=== PATIENT | male | born 1955 | race Caucasian/White ===

== ENCOUNTER 2018-11-18 12:39 | Inpatient (IN) | payer OTHER ==
[~2018-11-18] VITALS: Ht 195.6 cm; Wt 118.4 kg
[2018-11-18] VITALS (9 sets, daily range): BP systolic 113–146; BP diastolic 73–85
[~2018-11-18 12:39] MED LIST: ALFU10TA3 PO; AMLO5TAB10 PO; ESCITALOPRAM OX10 MG PO; FINA5TAB4 PO; GUAI1CAP9 PO; HYDROmorphone 2 MG/ML VIAL IV PRN; IV RINGERS,LACTATED 1000ML 1,000 ML IV SCH; LIDOCAINE 1% PF 2 ML VIAL. ID PRN; METF500T16 PO; MORPHINE SULFATE 2 MG/ML VIAL. IV PRN; ONDANSETRON PF 4 MG/2 ML VIAL. IV PRN; PROCHLORPERAZINE 10 MG/2 ML VIAL. IV PRN; fentaNYL PF VIAL 100 MCG/2 ML VIAL IV PRN
[2018-11-18] MEDS ORDERED: INSULIN LISPRO 100 UNIT/ML 3ML VIAL for OP,RR ONLY. SQ PRN (13:15)
[2018-11-18] MEDS ORDERED: ONDANSETRON PF 4 MG/2 ML VIAL. ONE (13:59)
[2018-11-18] MEDS ORDERED: LIDOCAINE 2% PF 5 ML VIAL. ONE (13:59)
[2018-11-18] MEDS ORDERED: PROPOFOL 20 ML IV ONE (13:59)
[2018-11-18] MEDS ORDERED: DEXAMETHASONE SOD PHOS 4 MG/ML VIAL ONE (13:59)
[2018-11-18] MEDS ORDERED: fentaNYL PF VIAL 100 MCG/2 ML VIAL ONE (13:59)
[2018-11-18] MEDS ORDERED: KETOROLAC 30 MG/ML VIAL. ONE (14:53)
[2018-11-18] MEDS ORDERED: ePHEDrine PF IN SALINE 50 MG/10 ML SYRINGE. IV ONE (14:54)
[2018-11-18] MEDS ORDERED: PHENYLEPHRINE in 0.9% NACL PF 1 MG/10 ML SYRINGE. IV ONE (15:12)
[2018-11-18] MEDS ORDERED: SEVOFLURANE 61 TO 120 MINUTES. IH ONE (15:30)
[2018-11-18] MEDS ORDERED: IV NORMAL SALINE 1000ML BAG 1,000 ML IV SCH (16:16)
[2018-11-18] MEDS: POTASSIUM CL 20MEQ D5-0.45NACL 1,000 ML IV SCH (16:16)
--- NOTE | 2018-11-18 16:28 | PDOC4 ---
OPERATIVE NOTE Date: Date: Nov 18, 2018 Pre-Op Diagnosis: BPH w ZUÑIGA Post-Op Diagnosis: same Procedure Performed: cysto, TUR-P Surgeon: alicia Anesthesia Type: gen Blood Loss: 100cc Specimans Obtained: chips approx 40 gm Findings: enlarged obstructing prostate gland Complications: none Operative Note: Gen anes, IV abx admin'd, pt placed in lithotomy pos'n, prepped and draped in usual fashion Cysto performed revealing above findings. 14-Fr resectoscope placed with generous lubriction and the prostate then resected in usual fashion starting at neck, extending through the lateral lobes, and the completing with apical resection. Chips were removed with evacuator as needed and bleeding was controlled with cautery. Care was taken to preserve the veru and sphincter. At conclusion, the bladder was carefully inspected and there were no chips remaining in the bladder. The fossa appeared hemostatic. THe scope was removed and the patient had a good "void" sign. A 24-Fr 3-way liu was placed and CBI was initiated. The return was clear to pink. The patient was the awakened and transferred to in stable cond'n. The CBI was continued throughout the transport period. EBL 100cc Status in RR; good Will leave CBI through the night and re-eval in am. Labs ordered for am. YAHIR ABBOTT MD Nov 18, 2018 16:28
[2018-11-18] MEDS ORDERED: MORPHINE SULFATE 2 MG/ML VIAL. IV PRN (16:30)
[2018-11-18] MEDS ORDERED: PROCHLORPERAZINE 25 MG SUPP.RECT. PR PRN (16:30)
[2018-11-18] MEDS ORDERED: diphenhydrAMINE HCL 25 MG CAPSULE PO PRN (16:30)
[2018-11-18] MEDS ORDERED: HYDROcodone/APAP 5/325MG 1 TAB TABLET PO PRN ×2 (16:30)
[2018-11-18] MEDS ORDERED: ONDANSETRON PF 4 MG/2 ML VIAL. IV PRN (16:30)
[2018-11-18] MEDS ORDERED: NALOXONE 0.4 MG/ML VIAL. IV PRN ×2 (16:30)
[2018-11-18] MEDS ORDERED: PROCHLORPERAZINE 10 MG/2 ML VIAL. IV PRN (16:30)
[2018-11-18] MEDS ORDERED: 0.9 % SODIUM CHLORIDE 10 ML DISP.SYRIN. IV PRN (16:30)
[2018-11-18] MEDS: ACETAMINOPHEN 325 MG TABLET. PO SCH (17:00)
[2018-11-18] MEDS ORDERED: IV DEXTROSE 5% 250 ML BAG. IV PRN (19:30)
[2018-11-18] MEDS ORDERED: DEXTROSE 50% 25 GM / 50ML DISP.SYRIN. IV PRN (19:30)
[2018-11-18] MEDS: SENNOSIDES/DOCUSATE 8.6/50MG TABLET. PO SCH (20:54)
[2018-11-18] MEDS: TAMSULOSIN 0.4 MG CAP.ER.24H. PO SCH (20:54)
[2018-11-19] MEDS: ACETAMINOPHEN 325 MG TABLET. PO SCH ×4 (00:59→21:27)
[2018-11-19 03:00] VITALS: BP 110/66
[2018-11-19] MEDS: POTASSIUM CL 20MEQ D5-0.45NACL 1,000 ML IV SCH ×2 (06:10→12:16)
[2018-11-19 07:00] VITALS: BP 114/68
[2018-11-19 08:22] LABS: BASO # 0.1 x10^3/uL (0.0-0.2); BASO % 1 % (0-3); EOS # 0.1 x10^3/uL (0.0-0.7); EOS % 1 % (0-3); HEMATOCRIT 38.5 % (39.0-53.0); HEMOGLOBIN 13.3 g/dL (13.0-17.5); LYMPH # 0.6 x10^3/uL (1.0-4.8); LYMPH % 6 % (24-48); MEAN CORPUSCULAR HEMOGLOBIN 33 pg (25-35); MEAN CORPUSCULAR HGB CONC 35 g/dL (31-37); MEAN CORPUSCULAR VOLUME 94 fL (79-100); MONO # 0.6 x10^3/uL (0.0-1.1); MONO % 6 % (0-9); NEUT # 8.5 x10^3/uL (1.8-7.7); NEUT % 86 % (31-73); PLATELET COUNT 196 x10^3/uL (140-400); RED BLOOD COUNT 4.09 x10^6/uL (4.30-5.70); WHITE BLOOD COUNT 9.8 x10^3/uL (4.0-11.0)
[2018-11-19 08:40] LABS: CREATININE 1.2 mg/dL (0.7-1.3); GFR 61.1
[2018-11-19] MEDS ORDERED: INSULIN LISPRO 300 UNITS/3 ML VIAL. ONE (08:40)
[2018-11-19] MEDS: FINASTERIDE 5 MG TABLET. PO SCH (08:50)
[2018-11-19] MEDS: SENNOSIDES/DOCUSATE 8.6/50MG TABLET. PO SCH ×2 (08:50→21:27)
[2018-11-19] MEDS: CITALOPRAM 20 MG TABLET. PO SCH (08:50)
[2018-11-19] MEDS: amLODIPine BESYLATE 5 MG TABLET PO SCH (08:50)
[2018-11-19] MEDS: INSULIN LISPRO 300 UNITS/3 ML VIAL. SQ SCH ×3 (08:52→16:53)
[2018-11-19 09:11] LABS: POTASSIUM 4.5 mmol/L (3.5-5.1)
--- NOTE | 2018-11-19 09:55 | PDOC ---
PROGRESS NOTE CHIEF COMPLAINT: one day s/p TURP; no pain; taking fluids well SUBJECTIVE: ROS: ROS: RESPIRATORY: Shortness of breath denies. Cough denies. UROLOGY: Denies blood in urine. Denies difficulty urinating urine pink HPI: Duration: [] Quality: [] Severity: [] Site/Location: [] OBJECTIVE: Vital Signs: Vital Signs Date Time Temp Pulse Resp B/P (MAP) Pulse Ox O2 Delivery O2 Flow Rate FiO2 11/19/18 08:52 116/72 11/19/18 07:00 98.1 82 18 114/68 (83) 95 Room Air 98.1 11/19/18 03:00 98.2 82 18 110/66 (81) 96 Room Air 98.2 11/18/18 23:00 98.1 95 18 116/73 (87) 97 Room Air 98.1 11/18/18 22:00 103 121/73 (89) 93 Room Air 11/18/18 21:04 98 18 121/76 (91) 94 Room Air 11/18/18 19:30 93 113/78 (90) 95 Room Air 11/18/18 19:30 Room Air 11/18/18 19:00 92 125/80 (95) 93 Room Air 11/18/18 18:45 91 134/84 (101) 95 Room Air 11/18/18 18:30 91 18 129/85 (100) 95 Room Air 11/18/18 18:15 91 146/81 (102) 95 Room Air 11/18/18 17:30 98.1 40 18 139/80 (99) 96 Room Air 98.1 11/18/18 17:06 83 16 139/76 94 Room Air 11/18/18 16:50 84 12 146/76 97 Room Air 11/18/18 16:35 88 16 152/80 100 Simple Mask 8 11/18/18 16:16 Mask 11/18/18 16:16 97.9 106 16 128/75 99 Simple Mask 8 97.9 11/18/18 13:01 97.1 63 18 156/80 96 Room Air 97.1 I & O Intake and Output 11/19/18 06:59 Intake Total 2590 ml Output Total 67358 ml Balance -9460 ml Intake Oral 540 ml IV Total 2050 ml Output Urine Total 46127 ml PHYSICAL EXAM: Physical Exam: General: Pleasant, no acute distress, well groomed Eyes: conjunctiva anicteric, eyes full range of motion ENT: moist oral mucosa, normal dentition Neck: Trachea midline, no masses Respiratory: unlabored breathing, not using accessory muscles, no crackles or wheezes Cardiovascular: Regular rate and rhythm, no peripheral edema Abdomen: nontender, nondistended, no hepatosplenomegaly, no masses Skin: no rashes or skin lesions on visualized skin Psych: normal mood, affect. Alert and oriented x 3. LABS: Laboratory Tests Test 11/18/18 13:10 11/18/18 16:37 11/18/18 17:54 11/18/18 20:28 Glucose (Fingerstick) 100 mg/dL (70-99) 118 mg/dL (70-99) 150 mg/dL (70-99) 271 mg/dL (70-99) Test 11/19/18 06:57 11/19/18 08:01 White Blood Count 9.8 x10^3/uL (4.0-11.0) Red Blood Count 4.09 x10^6/uL (4.30-5.70) Hemoglobin 13.3 g/dL (13.0-17.5) Hematocrit 38.5 % (39.0-53.0) Mean Corpuscular Volume 94 fL (79-100) Mean Corpuscular Hemoglobin 33 pg (25-35) Mean Corpuscular Hemoglobin Concent 35 g/dL (31-37) Red Cell Distribution Width 15.0 % (11.5-14.5) Platelet Count 196 x10^3/uL (140-400) Neutrophils (%) (Auto) 86 % (31-73) Lymphocytes (%) (Auto) 6 % (24-48) Monocytes (%) (Auto) 6 % (0-9) Eosinophils (%) (Auto) 1 % (0-3) Basophils (%) (Auto) 1 % (0-3) Neutrophils # (Auto) 8.5 x10^3/uL (1.8-7.7) Lymphocytes # (Auto) 0.6 x10^3/uL (1.0-4.8) Monocytes # (Auto) 0.6 x10^3/uL (0.0-1.1) Eosinophils # (Auto) 0.1 x10^3/uL (0.0-0.7) Basophils # (Auto) 0.1 x10^3/uL (0.0-0.2) Sodium Level 140 mmol/L (136-145) Potassium Level 4.5 mmol/L (3.5-5.1) Chloride Level 104 mmol/L (98-107) Carbon Dioxide Level 27 mmol/L (21-32) Anion Gap 9 (6-14) Blood Urea Nitrogen 18 mg/dL (8-26) Creatinine 1.2 mg/dL (0.7-1.3) Estimated GFR (Cockcroft-Gault) 61.1 Glucose Level 165 mg/dL (70-99) Calcium Level 9.0 mg/dL (8.5-10.1) Glucose (Fingerstick) 163 mg/dL (70-99) MEDICATIONS: Current Medications Medications (Trade) Dose Ordered Sig/Dilma Start Time Stop Time Status Last Admin Dose Admin Acetaminophen (Tylenol) 650 mg Q8HRS 11/18/18 17:00 11/19/18 06:10 650 MG Acetaminophen/ Hydrocodone Bitart (Lortab 5/325) 2 tab PRN Q4HRS PRN 11/18/18 16:30 Amlodipine Besylate (Norvasc) 5 mg DAILY 11/19/18 09:00 11/19/18 08:52 5 MG Cefazolin Sodium/ Dextrose 50 ml @ 100 mls/hr 1X ONCE 11/18/18 20:30 11/18/18 20:59 DC 11/18/18 20:55 100 MLS/HR Citalopram Hydrobromide (CeleXA) 20 mg DAILY 11/19/18 09:00 11/19/18 08:52 20 MG Dexamethasone Sodium Phosphate (Decadron) 4 mg STK-MED ONCE 11/18/18 13:59 11/18/18 13:59 DC Dextrose 250 ml PRN Q15MIN PRN 11/18/18 19:30 Dextrose (Dextrose 50%-Water Syringe) 12.5 gm PRN Q15MIN PRN 11/18/18 19:30 Diphenhydramine HCl (Benadryl) 25 mg PRN Q6HRS PRN 11/18/18 16:30 Ephedrine Sulfate (Akovaz) 50 mg STK-MED ONCE 11/18/18 14:57 11/18/18 14:57 DC Ephedrine Sulfate (ePHEDrine PF IN SALINE SYRINGE) 50 mg STK-MED ONCE 11/18/18 14:54 11/18/18 14:54 DC Fentanyl Citrate (Fentanyl 2ml Vial) 100 mcg STK-MED ONCE 11/18/18 13:59 11/18/18 14:00 DC Finasteride (Proscar) 5 mg DAILY 11/19/18 09:00 11/19/18 08:52 5 MG Hydromorphone HCl (Dilaudid) 0.5 mg PRN Q10MIN PRN 11/18/18 07:00 11/18/18 20:00 DC Insulin Human Lispro (HumaLOG VIAL for OP,RR ONLY) 0-10 units PRN Q1HR PRN 11/18/18 13:15 11/19/18 13:14 Insulin Human Lispro (HumaLOG) 300 units STK-MED ONCE 11/19/18 08:40 11/19/18 08:41 DC Ketorolac Tromethamine (Toradol 30mg Vial) 30 mg STK-MED ONCE 11/18/18 14:53 11/18/18 14:54 DC Lidocaine HCl (Lidocaine Pf 2% Vial) 5 ml STK-MED ONCE 11/18/18 13:59 11/18/18 13:59 DC Lidocaine HCl (Xylocaine-Mpf 1% 2ml Vial) 2 ml PRN 1X PRN 11/18/18 07:00 11/18/18 20:00 DC Metformin HCl (Glucophage) 500 mg BIDWMEALS 11/19/18 19:30 Morphine Sulfate (Morphine Sulfate) 1 mg PRN Q1HR PRN 11/18/18 16:30 Naloxone HCl (Narcan) 0.4 mg PRN Q2MIN PRN 11/18/18 16:30 Ondansetron HCl (Zofran) 4 mg PRN Q6HRS PRN 11/18/18 16:30 Phenylephrine HCl (PHENYLEPHRINE in 0.9% NACL PF) 1 mg STK-MED ONCE 11/18/18 15:12 11/18/18 15:12 DC Potassium Chloride/Dextrose/ Sod Cl 1,000 ml @ 100 mls/hr Q10H 11/18/18 16:16 11/19/18 06:10 100 MLS/HR Prochlorperazine (Compazine) 25 mg PRN Q12HR PRN 11/18/18 16:30 Prochlorperazine Edisylate (Compazine) 5 mg PRN Q6HRS PRN 11/18/18 16:30 Propofol 20 ml @ As Directed STK-MED ONCE 11/18/18 13:59 11/18/18 13:59 DC Ringer's Solution 1,000 ml @ 30 mls/hr Q24H 11/18/18 07:00 11/18/18 18:59 DC 11/18/18 13:13 30 MLS/HR Senna/Docusate Sodium (Senna Plus) 1 tab BID 11/18/18 21:00 11/19/18 08:52 1 TAB Sevoflurane (Ultane) 60 ml STK-MED ONCE 11/18/18 15:30 11/18/18 15:30 DC Sodium Chloride 1,000 ml @ 25 mls/hr Q24H 11/18/18 16:16 Sodium Chloride (Normal Saline Flush) 3 ml QSHIFT PRN 11/18/18 16:30 Tamsulosin HCl (Flomax) 0.4 mg QHS 11/18/18 21:00 11/18/18 20:55 0.4 MG ASSESSMENT & PLAN Will cont liu today; enc po fluids; decrease CBI DC iv Cipro orally YAHIR ABBOTT MD Nov 19, 2018 09:55
[2018-11-19 11:00] VITALS: BP 111/69
[2018-11-19] MEDS: CIPROFLOXACIN HCL 250 MG TABLET. PO SCH ×2 (11:48→21:27)
--- NOTE | 2018-11-19 11:52 | NUR ---
SS following for discharge planning. SS reviewed pt chart. Pt is from home with spouse and is currently on room air. No discharge needs noted at this time. SS will continue to follow for discharge planning.
[2018-11-19 15:00] VITALS: BP 111/52
[2018-11-19 19:00] VITALS: BP 135/69
[2018-11-19] MEDS: metFORMIN 500 MG TABLET PO SCH (20:09)
[2018-11-19] MEDS: TAMSULOSIN 0.4 MG CAP.ER.24H. PO SCH (21:27)
[2018-11-19 23:00] VITALS: BP 146/77
[2018-11-20 03:00] VITALS: BP 122/70
[2018-11-20] MEDS: ACETAMINOPHEN 325 MG TABLET. PO SCH (06:29)
[2018-11-20 07:00] VITALS: BP 145/75
[2018-11-20] MEDS: metFORMIN 500 MG TABLET PO SCH (07:58)
[2018-11-20] MEDS: INSULIN LISPRO 300 UNITS/3 ML VIAL. SQ SCH ×2 (08:00→12:00)
--- NOTE | 2018-11-20 08:54 | PDOC ---
PROGRESS NOTE CHIEF COMPLAINT: no c/o's' having BM SUBJECTIVE: ROS: ROS: RESPIRATORY: Shortness of breath denies. Cough denies. UROLOGY: Denies blood in urine. Denies difficulty urinating HPI: Duration: [] Quality: [] Severity: [] Site/Location: [] OBJECTIVE: Vital Signs: Vital Signs Date Time Temp Pulse Resp B/P (MAP) Pulse Ox O2 Delivery O2 Flow Rate FiO2 11/20/18 03:00 97.9 60 18 122/70 (87) 97 Room Air 97.9 11/19/18 23:00 97.9 59 18 146/77 (100) 97 Room Air 97.9 11/19/18 20:10 Room Air 11/19/18 19:00 97.7 64 18 135/69 (91) 97 Room Air 97.7 11/19/18 15:00 97.7 66 18 111/52 (71) 92 Room Air 97.7 11/19/18 11:00 97.9 79 18 111/69 (83) 96 Room Air 97.9 I & O Intake and Output 11/20/18 07:00 Intake Total 2750 ml Output Total 83885 ml Balance -7650 ml Intake Oral 1750 ml IV Total 1000 ml Output Urine Total 41100 ml PHYSICAL EXAM: Physical Exam: General: Pleasant, no acute distress, well groomed Eyes: conjunctiva anicteric, eyes full range of motion ENT: moist oral mucosa, normal dentition Neck: Trachea midline, no masses Respiratory: unlabored breathing, not using accessory muscles, no crackles or wheezes Cardiovascular: Regular rate and rhythm, no peripheral edema Abdomen: nontender, nondistended, no hepatosplenomegaly, no masses Skin: no rashes or skin lesions on visualized skin Psych: normal mood, affect. Alert and oriented x 3. LABS: Laboratory Tests Test 11/18/18 13:10 11/18/18 16:37 11/18/18 17:54 11/18/18 20:28 Glucose (Fingerstick) 100 mg/dL (70-99) 118 mg/dL (70-99) 150 mg/dL (70-99) 271 mg/dL (70-99) Test 11/19/18 06:57 11/19/18 08:01 11/19/18 11:37 11/19/18 16:34 White Blood Count 9.8 x10^3/uL (4.0-11.0) Red Blood Count 4.09 x10^6/uL (4.30-5.70) Hemoglobin 13.3 g/dL (13.0-17.5) Hematocrit 38.5 % (39.0-53.0) Mean Corpuscular Volume 94 fL (79-100) Mean Corpuscular Hemoglobin 33 pg (25-35) Mean Corpuscular Hemoglobin Concent 35 g/dL (31-37) Red Cell Distribution Width 15.0 % (11.5-14.5) Platelet Count 196 x10^3/uL (140-400) Neutrophils (%) (Auto) 86 % (31-73) Lymphocytes (%) (Auto) 6 % (24-48) Monocytes (%) (Auto) 6 % (0-9) Eosinophils (%) (Auto) 1 % (0-3) Basophils (%) (Auto) 1 % (0-3) Neutrophils # (Auto) 8.5 x10^3/uL (1.8-7.7) Lymphocytes # (Auto) 0.6 x10^3/uL (1.0-4.8) Monocytes # (Auto) 0.6 x10^3/uL (0.0-1.1) Eosinophils # (Auto) 0.1 x10^3/uL (0.0-0.7) Basophils # (Auto) 0.1 x10^3/uL (0.0-0.2) Sodium Level 140 mmol/L (136-145) Potassium Level 4.5 mmol/L (3.5-5.1) Chloride Level 104 mmol/L (98-107) Carbon Dioxide Level 27 mmol/L (21-32) Anion Gap 9 (6-14) Blood Urea Nitrogen 18 mg/dL (8-26) Creatinine 1.2 mg/dL (0.7-1.3) Estimated GFR (Cockcroft-Gault) 61.1 Glucose Level 165 mg/dL (70-99) Calcium Level 9.0 mg/dL (8.5-10.1) Glucose (Fingerstick) 163 mg/dL (70-99) 197 mg/dL (70-99) 183 mg/dL (70-99) Test 11/19/18 20:32 11/20/18 07:51 Glucose (Fingerstick) 143 mg/dL (70-99) 95 mg/dL (70-99) MEDICATIONS: Current Medications Medications (Trade) Dose Ordered Sig/Dilma Start Time Stop Time Status Last Admin Dose Admin Acetaminophen (Tylenol) 650 mg Q8HRS 11/18/18 17:00 11/20/18 06:29 650 MG Acetaminophen/ Hydrocodone Bitart (Lortab 5/325) 2 tab PRN Q4HRS PRN 11/18/18 16:30 Amlodipine Besylate (Norvasc) 5 mg DAILY 11/19/18 09:00 11/19/18 08:52 5 MG Cefazolin Sodium/ Dextrose 50 ml @ 100 mls/hr 1X ONCE 11/18/18 20:30 11/18/18 20:59 DC 11/18/18 20:55 100 MLS/HR Ciprofloxacin (Cipro) 250 mg BID 11/19/18 10:30 11/19/18 21:27 250 MG Citalopram Hydrobromide (CeleXA) 20 mg DAILY 11/19/18 09:00 11/19/18 08:52 20 MG Dexamethasone Sodium Phosphate (Decadron) 4 mg STK-MED ONCE 11/18/18 13:59 11/18/18 13:59 DC Dextrose 250 ml PRN Q15MIN PRN 11/18/18 19:30 Dextrose (Dextrose 50%-Water Syringe) 12.5 gm PRN Q15MIN PRN 11/18/18 19:30 Diphenhydramine HCl (Benadryl) 25 mg PRN Q6HRS PRN 11/18/18 16:30 Ephedrine Sulfate (Akovaz) 50 mg STK-MED ONCE 11/18/18 14:57 11/18/18 14:57 DC Ephedrine Sulfate (ePHEDrine PF IN SALINE SYRINGE) 50 mg STK-MED ONCE 11/18/18 14:54 11/18/18 14:54 DC Fentanyl Citrate (Fentanyl 2ml Vial) 100 mcg STK-MED ONCE 11/18/18 13:59 11/18/18 14:00 DC Finasteride (Proscar) 5 mg DAILY 11/19/18 09:00 11/19/18 08:52 5 MG Hydromorphone HCl (Dilaudid) 0.5 mg PRN Q10MIN PRN 11/18/18 07:00 11/18/18 20:00 DC Insulin Human Lispro (HumaLOG VIAL for OP,RR ONLY) 0-10 units PRN Q1HR PRN 11/18/18 13:15 11/19/18 13:14 DC Insulin Human Lispro (HumaLOG) 300 units STK-MED ONCE 11/19/18 08:40 11/19/18 08:41 DC Ketorolac Tromethamine (Toradol 30mg Vial) 30 mg STK-MED ONCE 11/18/18 14:53 11/18/18 14:54 DC Lidocaine HCl (Lidocaine Pf 2% Vial) 5 ml STK-MED ONCE 11/18/18 13:59 11/18/18 13:59 DC Lidocaine HCl (Xylocaine-Mpf 1% 2ml Vial) 2 ml PRN 1X PRN 11/18/18 07:00 11/18/18 20:00 DC Metformin HCl (Glucophage) 500 mg BIDWMEALS 11/19/18 19:30 11/20/18 07:58 500 MG Morphine Sulfate (Morphine Sulfate) 1 mg PRN Q1HR PRN 11/18/18 16:30 Naloxone HCl (Narcan) 0.4 mg PRN Q2MIN PRN 11/18/18 16:30 Ondansetron HCl (Zofran) 4 mg PRN Q6HRS PRN 11/18/18 16:30 Phenylephrine HCl (PHENYLEPHRINE in 0.9% NACL PF) 1 mg STK-MED ONCE 11/18/18 15:12 11/18/18 15:12 DC Potassium Chloride/Dextrose/ Sod Cl 1,000 ml @ 100 mls/hr Q10H 11/18/18 16:16 11/19/18 12:18 DC 11/19/18 06:10 100 MLS/HR Prochlorperazine (Compazine) 25 mg PRN Q12HR PRN 11/18/18 16:30 Prochlorperazine Edisylate (Compazine) 5 mg PRN Q6HRS PRN 11/18/18 16:30 Propofol 20 ml @ As Directed STK-MED ONCE 11/18/18 13:59 11/18/18 13:59 DC Ringer's Solution 1,000 ml @ 30 mls/hr Q24H 11/18/18 07:00 11/18/18 18:59 DC 11/18/18 13:13 30 MLS/HR Senna/Docusate Sodium (Senna Plus) 1 tab BID 11/18/18 21:00 11/19/18 21:27 1 TAB Sevoflurane (Ultane) 60 ml STK-MED ONCE 11/18/18 15:30 11/18/18 15:30 DC Sodium Chloride 1,000 ml @ 25 mls/hr Q24H 11/18/18 16:16 11/19/18 12:18 DC Sodium Chloride (Normal Saline Flush) 3 ml QSHIFT PRN 11/18/18 16:30 Tamsulosin HCl (Flomax) 0.4 mg QHS 11/18/18 21:00 11/19/18 21:27 0.4 MG ASSESSMENT & PLAN urine is lt quick without clots path pending Glu ok P/ dc liu; start 6 BR; poss home later today YAHIR ABBOTT MD Nov 20, 2018 08:54
[2018-11-20] MEDS: SENNOSIDES/DOCUSATE 8.6/50MG TABLET. PO SCH (09:31)
[2018-11-20] MEDS: CITALOPRAM 20 MG TABLET. PO SCH (09:31)
[2018-11-20] MEDS: CIPROFLOXACIN HCL 250 MG TABLET. PO SCH (09:31)
[2018-11-20] MEDS: FINASTERIDE 5 MG TABLET. PO SCH (09:33)
[2018-11-20] MEDS: amLODIPine BESYLATE 5 MG TABLET PO SCH (09:33)
[2018-11-20 11:00] VITALS: BP 128/73
--- NOTE | 2018-11-20 12:10 | PDOC ---
PROGRESS NOTE CHIEF COMPLAINT: has voided x2 and urine is light quick; no pain; path pending; will send home w Rx cipro x 5 d and Colace; we disc'd his activity limitations and to stay hydrated SUBJECTIVE: ROS: ROS: RESPIRATORY: Shortness of breath denies. Cough denies. UROLOGY: Denies blood in urine. Denies difficulty urinating HPI: Duration: [] Quality: [] Severity: [] Site/Location: [] OBJECTIVE: Vital Signs: Vital Signs Date Time Temp Pulse Resp B/P (MAP) Pulse Ox O2 Delivery O2 Flow Rate FiO2 11/20/18 11:00 98.0 63 16 128/73 (91) 96 Room Air 98.0 11/20/18 09:33 66 145/75 11/20/18 07:30 Room Air 11/20/18 07:00 97.7 59 16 145/75 (98) 96 Room Air 97.7 11/20/18 03:00 97.9 60 18 122/70 (87) 97 Room Air 97.9 11/19/18 23:00 97.9 59 18 146/77 (100) 97 Room Air 97.9 11/19/18 20:10 Room Air 11/19/18 19:00 97.7 64 18 135/69 (91) 97 Room Air 97.7 11/19/18 15:00 97.7 66 18 111/52 (71) 92 Room Air 97.7 I & O Intake and Output 11/20/18 07:00 Intake Total 2750 ml Output Total 85494 ml Balance -7650 ml Intake Oral 1750 ml IV Total 1000 ml Output Urine Total 80808 ml PHYSICAL EXAM: Physical Exam: General: Pleasant, no acute distress, well groomed Eyes: conjunctiva anicteric, eyes full range of motion ENT: moist oral mucosa, normal dentition Neck: Trachea midline, no masses Respiratory: unlabored breathing, not using accessory muscles, no crackles or wheezes Cardiovascular: Regular rate and rhythm, no peripheral edema Abdomen: nontender, nondistended, no hepatosplenomegaly, no masses Skin: no rashes or skin lesions on visualized skin Psych: normal mood, affect. Alert and oriented x 3. LABS: Laboratory Tests Test 11/18/18 13:10 11/18/18 16:37 11/18/18 17:54 11/18/18 20:28 Glucose (Fingerstick) 100 mg/dL (70-99) 118 mg/dL (70-99) 150 mg/dL (70-99) 271 mg/dL (70-99) Test 11/19/18 06:57 11/19/18 08:01 11/19/18 11:37 11/19/18 16:34 White Blood Count 9.8 x10^3/uL (4.0-11.0) Red Blood Count 4.09 x10^6/uL (4.30-5.70) Hemoglobin 13.3 g/dL (13.0-17.5) Hematocrit 38.5 % (39.0-53.0) Mean Corpuscular Volume 94 fL (79-100) Mean Corpuscular Hemoglobin 33 pg (25-35) Mean Corpuscular Hemoglobin Concent 35 g/dL (31-37) Red Cell Distribution Width 15.0 % (11.5-14.5) Platelet Count 196 x10^3/uL (140-400) Neutrophils (%) (Auto) 86 % (31-73) Lymphocytes (%) (Auto) 6 % (24-48) Monocytes (%) (Auto) 6 % (0-9) Eosinophils (%) (Auto) 1 % (0-3) Basophils (%) (Auto) 1 % (0-3) Neutrophils # (Auto) 8.5 x10^3/uL (1.8-7.7) Lymphocytes # (Auto) 0.6 x10^3/uL (1.0-4.8) Monocytes # (Auto) 0.6 x10^3/uL (0.0-1.1) Eosinophils # (Auto) 0.1 x10^3/uL (0.0-0.7) Basophils # (Auto) 0.1 x10^3/uL (0.0-0.2) Sodium Level 140 mmol/L (136-145) Potassium Level 4.5 mmol/L (3.5-5.1) Chloride Level 104 mmol/L (98-107) Carbon Dioxide Level 27 mmol/L (21-32) Anion Gap 9 (6-14) Blood Urea Nitrogen 18 mg/dL (8-26) Creatinine 1.2 mg/dL (0.7-1.3) Estimated GFR (Cockcroft-Gault) 61.1 Glucose Level 165 mg/dL (70-99) Calcium Level 9.0 mg/dL (8.5-10.1) Glucose (Fingerstick) 163 mg/dL (70-99) 197 mg/dL (70-99) 183 mg/dL (70-99) Test 11/19/18 20:32 11/20/18 07:51 11/20/18 11:32 Glucose (Fingerstick) 143 mg/dL (70-99) 95 mg/dL (70-99) 110 mg/dL (70-99) MEDICATIONS: Current Medications Medications (Trade) Dose Ordered Sig/Dilma Start Time Stop Time Status Last Admin Dose Admin Acetaminophen (Tylenol) 650 mg Q8HRS 11/18/18 17:00 11/20/18 06:29 650 MG Acetaminophen/ Hydrocodone Bitart (Lortab 5/325) 2 tab PRN Q4HRS PRN 11/18/18 16:30 Amlodipine Besylate (Norvasc) 5 mg DAILY 11/19/18 09:00 11/20/18 09:33 5 MG Cefazolin Sodium/ Dextrose 50 ml @ 100 mls/hr 1X ONCE 11/18/18 20:30 11/18/18 20:59 DC 11/18/18 20:55 100 MLS/HR Ciprofloxacin (Cipro) 250 mg BID 11/19/18 10:30 11/20/18 09:33 250 MG Citalopram Hydrobromide (CeleXA) 20 mg DAILY 11/19/18 09:00 11/20/18 09:33 20 MG Dexamethasone Sodium Phosphate (Decadron) 4 mg STK-MED ONCE 11/18/18 13:59 11/18/18 13:59 DC Dextrose 250 ml PRN Q15MIN PRN 11/18/18 19:30 Dextrose (Dextrose 50%-Water Syringe) 12.5 gm PRN Q15MIN PRN 11/18/18 19:30 Diphenhydramine HCl (Benadryl) 25 mg PRN Q6HRS PRN 11/18/18 16:30 Ephedrine Sulfate (Akovaz) 50 mg STK-MED ONCE 11/18/18 14:57 11/18/18 14:57 DC Ephedrine Sulfate (ePHEDrine PF IN SALINE SYRINGE) 50 mg STK-MED ONCE 11/18/18 14:54 11/18/18 14:54 DC Fentanyl Citrate (Fentanyl 2ml Vial) 100 mcg STK-MED ONCE 11/18/18 13:59 11/18/18 14:00 DC Finasteride (Proscar) 5 mg DAILY 11/19/18 09:00 11/20/18 09:33 5 MG Hydromorphone HCl (Dilaudid) 0.5 mg PRN Q10MIN PRN 11/18/18 07:00 11/18/18 20:00 DC Insulin Human Lispro (HumaLOG VIAL for OP,RR ONLY) 0-10 units PRN Q1HR PRN 11/18/18 13:15 11/19/18 13:14 DC Insulin Human Lispro (HumaLOG) 300 units STK-MED ONCE 11/19/18 08:40 11/19/18 08:41 DC Ketorolac Tromethamine (Toradol 30mg Vial) 30 mg STK-MED ONCE 11/18/18 14:53 11/18/18 14:54 DC Lidocaine HCl (Lidocaine Pf 2% Vial) 5 ml STK-MED ONCE 11/18/18 13:59 11/18/18 13:59 DC Lidocaine HCl (Xylocaine-Mpf 1% 2ml Vial) 2 ml PRN 1X PRN 11/18/18 07:00 11/18/18 20:00 DC Metformin HCl (Glucophage) 500 mg BIDWMEALS 11/19/18 19:30 11/20/18 07:58 500 MG Morphine Sulfate (Morphine Sulfate) 1 mg PRN Q1HR PRN 11/18/18 16:30 Naloxone HCl (Narcan) 0.4 mg PRN Q2MIN PRN 11/18/18 16:30 Ondansetron HCl (Zofran) 4 mg PRN Q6HRS PRN 11/18/18 16:30 Phenylephrine HCl (PHENYLEPHRINE in 0.9% NACL PF) 1 mg STK-MED ONCE 11/18/18 15:12 11/18/18 15:12 DC Potassium Chloride/Dextrose/ Sod Cl 1,000 ml @ 100 mls/hr Q10H 11/18/18 16:16 11/19/18 12:18 DC 11/19/18 06:10 100 MLS/HR Prochlorperazine (Compazine) 25 mg PRN Q12HR PRN 11/18/18 16:30 Prochlorperazine Edisylate (Compazine) 5 mg PRN Q6HRS PRN 11/18/18 16:30 Propofol 20 ml @ As Directed STK-MED ONCE 11/18/18 13:59 11/18/18 13:59 DC Ringer's Solution 1,000 ml @ 30 mls/hr Q24H 11/18/18 07:00 11/18/18 18:59 DC 11/18/18 13:13 30 MLS/HR Senna/Docusate Sodium (Senna Plus) 1 tab BID 11/18/18 21:00 11/20/18 09:33 1 TAB Sevoflurane (Ultane) 60 ml STK-MED ONCE 11/18/18 15:30 11/18/18 15:30 DC Sodium Chloride 1,000 ml @ 25 mls/hr Q24H 11/18/18 16:16 11/19/18 12:18 DC Sodium Chloride (Normal Saline Flush) 3 ml QSHIFT PRN 11/18/18 16:30 Tamsulosin HCl (Flomax) 0.4 mg QHS 11/18/18 21:00 11/19/18 21:27 0.4 MG ASSESSMENT & PLAN doing well; will send home; f/u per office; Rx's attched path pending YAHIR ABBOTT MD Nov 20, 2018 12:10
--- NOTE | 2018-11-20 14:35 | NUR ---
Discharge orders placed. Discharge instructions/medications discussed with pt. Explained pt Cipro will be called into Pharmacy on file. Pt will need to start medication tonight. Pt verbalized understanding. Discussed pt will need to drink 6 glasses of water per day, avoid strenuous activity and car rides, call with any concerns and to f/u 2-3 weeks. Pt voiced understanding. IV removed without complications. Wheeled pt out to hospital exit and assisted him into private vehicle without complications.
--- NOTE | 2018-11-20 14:50 | NUR ---
Called [facility]. Spoke with Zuly Lieberman. Cipro 250mg #10 1 po BID called in. Orders read back and verified.
--- NOTE | 2018-11-20 15:07 | PATHOLOGY ---
[facility] Accession Number: [id number] . 01 Material submitted: . prostate - PROSTATE CHIPS . 01 Clinical history: . BPH . 02 Diagnosis: Prostate tissue, transurethral resection: - Nodular prostatic glandular and fibromuscular hyperplasia. - Chronic inflammation, patchy. ([facility] 11/20/2018) [facility] 11/20/2018 1303 Local . 02 Comment: There is no evidence of malignancy. ([facility] 11/20/2018) . 02 Electronically signed: . Ricardo Tolbert MD, Pathologist NPI- [id number] . 01 Gross description: . The specimen is received in formalin, labeled "Douglas, Jean Claude, prostate chips" and consists of multiple segments of pink smooth and glistening to pablo and cauterized tissue weighing 51 g and measuring 12.7 x 8.8 x 2.5 cm in aggregate. A inside sales account representative portion to focus on the pink glistening tissue in A1-A14. ([facility]; 11/19/2018) SYU/SYU 11/19/2018 1759 Local . 02 Pathologist provided ICD-10: N40.0, N41.1 . 02 CPT . 408814 Specimen Comment: A courtesy copy of this report has been sent to Specimen Comment: [phone], . Specimen Comment: Report sent to / DR PEREZ Performed at: 01 [facility] [address], [place] [id number] MD Miguel Liang MD Phone: [phone] Performed at: 02 [facility] [address], [place] [id number] MD Ricardo Tolbert MD Phone: [phone]
== END 2018-11-20 14:35 | disposition home or self-care (01) | DRG 713 ==
LOC: SURG 12:39 → 4 NORTH 17:10 → OBSVTOIN 17:10
PROVIDERS: ADMIT Urology; ATTEND Urology
PROC: 0VT08ZZ Resection of Prostate, Via Natural or Artificial Opening Endoscopic (ICD-10-PCS; principal; 2018-11-18 14:30)
DX: N40.1 Benign prostatic hyperplasia with lower urinary tract symptoms (principal); N13.8 Other obstructive and reflux uropathy; I10 Essential (primary) hypertension; E11.9 Type 2 diabetes mellitus without complications; M19.90 Unspecified osteoarthritis, unspecified site; Z90.79 Acquired absence of other genital organ(s); Z79.899 Other long term (current) drug therapy
CPT/HCPCS: 36415; 80048; 82962; 85025; 88305; A7015; J0171; J0696; J1100; J1815; J1885; J2001; J2370; J2405; J2704; J3010; G0378